=== PATIENT | male | born 1945 | race Caucasian/White ===

== ENCOUNTER 2018-04-18 09:03 | Observation (INO) | payer OTHER, MEDICARE ==
--- NOTE | 2018-04-18 10:14 | EDPHY ---
HPI/HX/ROS/PE/MDM Narrative: CHIEF COMPLAINT: Black stools and emesis HISTORY OF PRESENT ILLNESS: The patient is a 72 y/o male with a history of diverticulitis with perforation requiring partial colectomy and acid reflux complaining of black diarrhea and emesis over the last two days. He ate sushi two days ago and three hours later developed "severe diarrhea all black with some vomiting." The diarrhea continued yesterday so he went to see his PCP in [place]. She obtained a stool sample that he has not received the results of yet. She suspected food poisoning and patient returned home. This morning he developed urgent vomiting and his emesis was black. He called his PCP and was referred directly to the ED. He currently feels weak and has only been able to drink a little bit of Gatorade over the last 1-2 days due to nausea and loss of appetite. He's had intermittent abdominal discomfort during the diarrheal episodes. He has a history of heartburn, but this has been well-controlled with diet changes. He does not use anticoagulants or aspirin. No fever, chills, chest pain, shortness of breath, palpitations, vomiting, urinary complaints, headache, lightheadedness. REVIEW OF SYSTEMS: Aside from elements discussed in the HPI, a comprehensive 10-point review of systems was reviewed and is negative. PAST MEDICAL HISTORY: Diverticulitis with perforation, partial colectomy - Dr. Ch SOCIAL HISTORY: . Lives in [place]. Retired. PCP: Dr. Balderrama. VITAL SIGNS: Reviewed by me GENERAL: Well-developed, well-nourished, resting comfortably in no respiratory distress. HEENT: Atraumatic. Eyes: No icterus, no injection, mildly pale conjunctiva. Mouth: moist mucous membranes. No erythema or lesions. Neck: supple with no adenopathy. LUNGS: Clear to auscultation bilaterally, no wheezes, rhonchi or rales. CARDIAC: Regular rate and rhythm, no rubs, murmurs or gallops. ABDOMEN: Soft, nontender, nondistended, bowel sounds normal. RECTAL: Melena on gloved finger. External hemorrhoid. BACK: No CVA tenderness. EXTREMITIES: No trauma. No edema. Range of motion is normal throughout. NEURO: Alert and oriented, grossly nonfocal. SKIN: Warm and dry, no rash. PSYCHIATRIC: Normal mentation, no agitation. Portions of this note were transcribed by a medical administrative technician. I personally performed a history, physical exam, medical decision making, and confirmed accuracy of information the transcribed note. ED Course: 72 y/o male who presents with a 2-day history of black diarrhea that began 3 hours after eating sushi and is now associated with black emesis this morning. He has mildly pale conjunctiva and melena on exam. He is not tachycardic and his abdomen is benign. Plan for IV, labs, occult stool. Occult stool is positive. Consulted with Dr. Knight, GI. He will scope patient today. Spoke with hospitalist. Dr. Rojas accepts admission for GI bleed. Patient did have a stool sample for GI pathogen panel obtained yesterday. These results are not yet available. MDM: Differential diagnosis of this patient's presumed upper GI bleeding was considered including but not limited to gastritis, Janice-Castillo, peptic ulcer disease, lower GI bleeding. - Data Points Laboratory Results: Laboratory Results 04/18/18 10:00 04/18/18 10:00 04/18/18 04/18/18 04/18/18 11:00 10:00 10:00 WBC RBC Hgb Hct MCV MCH MCHC RDW Plt Count MPV Neut % (Auto) Lymph % (Auto) [place] % (Auto) Eos % (Auto) Baso % (Auto) Nucleat RBC Rel Count Absolute Neuts (auto) Absolute Lymphs (auto) Absolute Monos (auto) Absolute Eos (auto) Absolute Basos (auto) Absolute Nucleated RBC Immature Gran % Immature Gran # Sodium 137 mEq/L mEq/L (135-145) Potassium 3.6 mEq/L mEq/L (3.5-5.2) Chloride 108 mEq/L mEq/L (97-110) Carbon Dioxide 23 mEq/l mEq/l (22-31) Anion Gap 6 mEq/L mEq/L (6-14) BUN 39 mg/dL H mg/dL (7-23) Creatinine 0.8 mg/dL mg/dL (0.7-1.3) Estimated GFR > 60 Glucose 101 mg/dL H mg/dL (70-100) Calcium 8.4 mg/dL L mg/dL (8.5-10.4) Total Bilirubin 1.2 mg/dL mg/dL (0.1-1.4) Conjugated Bilirubin 0.3 mg/dL mg/dL (0.0-0.5) Unconjugated Bilirubin 0.9 mg/dL mg/dL (0.0-1.1) AST 52 IU/L IU/L (17-59) ALT 53 IU/L IU/L (21-72) Alkaline Phosphatase 51 IU/L IU/L (38-126) Total Protein 6.0 g/dL L g/dL (6.3-8.2) Albumin 3.7 g/dL g/dL (3.5-5.0) Lipase 19 IU/L L IU/L (23-300) Stool Occult Bld Scrn POSITIVE H (NEGATIVE) Patient ABO/Rh O POSITIVE Antibody Screen NEGATIVE Crossmatch IS Only See Detail 04/18/18 10:00 WBC 9.24 10^3/uL 10^3/uL (3.80-9.50) RBC 5.73 10^6/uL 10^6/uL (4.40-6.38) Hgb 16.6 g/dL g/dL (13.7-17.5) Hct 49.2 % % (40.0-51.0) MCV 85.9 fL fL (81.5-99.8) MCH 29.0 pg pg (27.9-34.1) MCHC 33.7 g/dL g/dL (32.4-36.7) RDW 14.5 % % (11.5-15.2) Plt Count 151 10^3/uL 10^3/uL (150-400) MPV 11.5 fL fL (8.7-11.7) Neut % (Auto) 69.4 % % (39.3-74.2) Lymph % (Auto) 14.9 % L % (15.0-45.0) [place] % (Auto) 12.0 % % (4.5-13.0) Eos % (Auto) 2.4 % % (0.6-7.6) Baso % (Auto) 0.3 % % (0.3-1.7) Nucleat RBC Rel Count 0.0 % % (0.0-0.2) Absolute Neuts (auto) 6.41 10^3/uL 10^3/uL (1.70-6.50) Absolute Lymphs (auto) 1.38 10^3/uL 10^3/uL (1.00-3.00) Absolute Monos (auto) 1.11 10^3/uL H 10^3/uL (0.30-0.80) Absolute Eos (auto) 0.22 10^3/uL 10^3/uL (0.03-0.40) Absolute Basos (auto) 0.03 10^3/uL 10^3/uL (0.02-0.10) Absolute Nucleated RBC 0.00 10^3/uL 10^3/uL (0-0.01) Immature Gran % 1.0 % % (0.0-1.1) Immature Gran # 0.09 10^3/uL 10^3/uL (0.00-0.10) Sodium Potassium Chloride Carbon Dioxide Anion Gap BUN Creatinine Estimated GFR Glucose Calcium Total Bilirubin Conjugated Bilirubin Unconjugated Bilirubin AST ALT Alkaline Phosphatase Total Protein Albumin Lipase Stool Occult Bld Scrn Patient ABO/Rh Antibody Screen Crossmatch IS Only Medications Given: Discontinued Medications Sodium Chloride (Ns) 1,000 mls @ 0 mls/hr IV EDNOW ONE; Wide Open PRN Reason: Protocol Stop: 04/18/18 10:20 Last Admin: 04/18/18 10:35 Dose: 1,000 mls Ondansetron HCl (Zofran) 4 mg IVP EDNOW ONE Stop: 04/18/18 10:20 Last Admin: 04/18/18 10:36 Dose: Not Given General Time Seen by Provider: 04/18/18 09:58 Initial Vital Signs: Initial Vital Signs Temperature (C) 36.4 C 04/18/18 09:12 Heart Rate 91 04/18/18 09:12 Respiratory Rate 18 04/18/18 09:12 Blood Pressure 117/77 04/18/18 09:12 O2 Sat (%) 93 04/18/18 09:12 O2 Delivery Mode Room Air Allergies/Adverse Reactions: hydromorphone [Hydromorphone] Allergy (Severe, Verified 04/18/18 09:15) Rash fluoxetine HCl [From Prozac] Allergy (Intermediate, Verified 04/18/18 09:15) AGITATION prochlorperazine edisylate [From Compazine] Allergy (Intermediate, Verified 09:15) JITTERY/SHAKEY prochlorperazine maleate [From Compazine] Allergy (Intermediate, Verified 09:15) JITTERY/SHAKEY adhesive tape [Adhesive Tape] Allergy (Mild, Verified 04/18/18 09:15) Rash CATS Allergy (Severe, Uncoded 04/18/18 09:15) TROUBLE BREATHING/WATERY EYES/SNEEZING FRESH FRUIT Allergy (Mild, Uncoded 04/18/18 09:15) SCRATCHY THROAT FRESH VEGS Allergy (Mild, Uncoded 04/18/18 09:15) SCRATCHY THROAT HAYFEVER Allergy (Mild, Uncoded 04/18/18 09:15) SCRATCHY THROAT/WATERY EYES/SNEEZING Home Medications: Medication Instructions Recorded Atorvastatin Calcium [Lipitor 10 5 mg PO HS 05/04/09 mg (*)] Cholecalciferol Vit D3 [Vitamin D3 2,000 units PO DAILY 04/28/11 2000 units tab (OTC)] Multivitamins [Multivitamin (*)] 1 each PO DAILY 04/28/11 Sildenafil Citrate [Viagra 50 MG 50 mg PO AD PRN 04/28/11 (*)] Albuterol [Proventil Inhaler HFA 1 - 2 puffs IH Q4H PRN 04/18/18 (*)] Herbals/Supplements -Info Only 1 ea PO DAILY 04/18/18 Montelukast Sodium [Singulair 10 10 mg PO DAILY@1800 PRN 04/18/18 mg (*)] [place]-3 Fatty Acids [Fish Oil 1000 1,000 mg PO DAILY 04/18/18 mg (*)] Vancomycin [Vancomycin (*)] 125 mg PO Q6 #38 cap 04/19/18 Departure - Departure Disposition: [facility] Inpatient Acute Clinical Impression: Upper GI bleed Diarrhea Qualifiers: Diarrhea type: unspecified type Qualified Code(s): R19.7 - Diarrhea, unspecified Condition: Fair Report Scribed for: Hellen Brown Report Scribed by: Linda Boo Date of Report: 04/18/18 Time of Report: 10:15
[2018-04-18] MEDS ORDERED: NS 1,000 ML IV ONE ×2 (10:19→12:03)
[2018-04-18] MEDS ORDERED: ONDANSETRON 4 MG/2 ML VIAL IVP ONE (10:19)
[2018-04-18 10:37] LABS: PLATELET COUNT 151 10^3/uL (150-400)
[2018-04-18] MEDS ORDERED: PANTOPRAZOLE SODIUM 40 MG VIAL IVP ONE (11:54)
[2018-04-18] MEDS ORDERED: PANTOPRAZOLE SODIUM 40 MG VIAL ONE (11:58)
[2018-04-18] MEDS ORDERED: ONDANSETRON DISINTEGRATING 4 MG TAB PO PRN (12:49)
[2018-04-18] MEDS ORDERED: ACETAMINOPHEN 325 MG TAB PO PRN (12:49)
[2018-04-18] MEDS ORDERED: ONDANSETRON 4 MG/2 ML VIAL IVP PRN (12:49)
[2018-04-18] MEDS ORDERED: ALBUTEROL 60 PUFFS/8 GM MDI IH PRN (12:56)
[2018-04-18] MEDS ORDERED: NS 1,000 ML IV SCH (13:00)
--- NOTE | 2018-04-18 13:04 | PDGENHP ---
<Louann Alonso - Last Filed: 04/18/18 13:20> History and Physical - Chief Complaint Melena, black emesis - History of Present Illness 72 y/o male presents c/o of black diarrhea and vomiting. Onset was 2 days ago after eating at a sushi restaurant where he had salmon sushi, his did not at the time. His last normal bowel movement was at the restaurant. Three hours after eating sushi, his stomach hurt and had "explosive" black diarrhea. The diarrhea continued yesterday, he followed up with his PCP Dr. Balderrama, in [place] and a stool sample was taken but results unknown. She suspected food poisoning and he was sent home. Today, he developed one time vomiting but reports it was black in color. Under the direction of his PCP, he came to the emergency room. He hasn't had much of an appetite, the last thing he ate was the sushi. He has been sipping on Gatorade, last sips were early this morning. He feels fatigued but not lightheaded or weak. Denies chest pains, palpitations, shortness of breath, fever or chills. Per pt, last colonoscopy was ~3 years ago, no polyps noted at the time and was "normal." He was told to have another colonoscopy in 10 years. He is being admitted for further diagnostic work-up and monitoring. Past Medical History 1. Diverticulitis with perforation (1997) 2. GERD 3. Hyperlipidemia 4. IBS 5. Osteopenia Past Surgical History 1. Partial colectomy s/p diverticulitis with perforation (1997, surgery performed by Dr. Harjinder Ch) 2. TURP 3. Cholecystectomy 4. Prostatectomy Social 1. . 2. 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 3. Denies tobacco or illicit drug use. Drinks occasionally 2-3 drinks/week. History Information - Allergies/Home Medication List Allergies/Adverse Reactions: hydromorphone [Hydromorphone] Allergy (Severe, Verified 04/18/18 09:15) Rash fluoxetine HCl [From Prozac] Allergy (Intermediate, Verified 04/18/18 09:15) AGITATION prochlorperazine edisylate [From Compazine] Allergy (Intermediate, Verified 09:15) JITTERY/SHAKEY prochlorperazine maleate [From Compazine] Allergy (Intermediate, Verified 09:15) JITTERY/SHAKEY adhesive tape [Adhesive Tape] Allergy (Mild, Verified 04/18/18 09:15) Rash CATS Allergy (Severe, Uncoded 04/18/18 09:15) TROUBLE BREATHING/WATERY EYES/SNEEZING FRESH FRUIT Allergy (Mild, Uncoded 04/18/18 09:15) SCRATCHY THROAT FRESH VEGS Allergy (Mild, Uncoded 04/18/18 09:15) SCRATCHY THROAT HAYFEVER Allergy (Mild, Uncoded 04/18/18 09:15) SCRATCHY THROAT/WATERY EYES/SNEEZING Home Medications: Atorvastatin Calcium [Lipitor 10 mg (*)] 5 mg PO HS 05/04/09 [Last Taken ] Cholecalciferol Vit D3 [Vitamin D3 2000 units tab (OTC)] 2,000 units PO DAILY [Last Taken 04/28/11 07:00] Multivitamins [Multivitamin (*)] 1 each PO DAILY 04/28/11 [Last Taken 04/28/11 07:00] Sildenafil Citrate [Viagra 50 MG (*)] 50 mg PO AD PRN 04/28/11 [Last Taken 04/24 20:00] Albuterol [Proventil Inhaler HFA (*)] 1 - 2 puffs IH Q4H PRN 04/18/18 [Last Taken Unknown] Herbals/Supplements -Info Only 1 ea PO DAILY 04/18/18 [Last Taken Unknown] Montelukast Sodium [Singulair 10 mg (*)] 10 mg PO DAILY@1800 PRN 04/18/18 [Last Taken Unknown] [place]-3 Fatty Acids [Fish Oil 1000 mg (*)] 1,000 mg PO DAILY 04/18/18 [Last Taken Unknown] I have personally reviewed and updated: family history, medical history, social history, surgical history Past Medical History: See HPI list - Surgical History Additional surgical history: See HPI list - Family History Positive for: cancer (Father had colon cancer) - Social History Smoking Status: Never smoked Alcohol Use: Occasionally Drug Use: None Review of Systems Review of Systems: ROS: 10pt was reviewed & negative except for what was stated in HPI & below Constitutional: Reports: malaise EENMT: Reports: no symptoms Cardiac: Reports: no symptoms Respiratory: Reports: no symptoms Gastrointestinal: Reports: vomitting, black stools, abdominal pain, abdominal distention, diarrhea Genitourinary: Reports: no symptoms Muscolosketal: Reports: no symptoms Skin: Reports: no symptoms Neurological: Reports: no symptoms Hematologic/Lymphatic: Reports: no symptoms Immunologic/Allergy: Reports: other (See allergy list) Physical Exam Physical Exam: Lab data and imaging reviewed EKG: SR, LAFB WBC: 9.24 RBC/H/H: 5.73/16.6/49.2 Na: 137 K: 3.6 BUN/Creatinine: 39/0.8 Temp Pulse Resp BP Pulse Ox 36.4 C 71 16 132/77 H 93 04/18/18 09:12 04/18/18 12:03 04/18/18 12:03 04/18/18 12:03 04/18/18 12:03 Constitutional: no apparent distress, appears nourished, not in pain Eyes: PERRL, anicteric sclera, EOMI Ears, Nose, Mouth, Throat: moist mucous membranes, hearing normal, ears appear normal, no oral mucosal ulcers Cardiovascular: regular rate and rhythym, no murmur, rub, or gallop, No edema Peripheral Pulses: 2+: dorsalis-pedis (R) (Radial 2+), dorsalis-pedis (L) ( Radial 2+) Respiratory: no respiratory distress, no rales or rhonchi, clear to auscultation Gastrointestinal: soft, non-tender abdomen, no palpable masses, other ( Hyperactive BS) Genitourinary: no bladder fullness, no bladder tenderness Skin: warm, normal color, no rashes or abrasions, no fluctuance, no induration, No mottled Musculoskeletal: full muscle strength, no muscle tenderness, normal joint ROM, no joint effusions Neurologic: AAOx3, sensation intact bilaterally, CN II-XII Intact Psychiatric: interacting appropriately, not anxious, not encephalopathic, thought process linear Lymph, Heme, Immunologic: no cervical LAD, no supraclavicular LAD Lab Data & Imaging Review 04/18/18 10:00 04/18/18 10:00 WBC 9.24 10^3/uL (3.80-9.50) 04/18/18 10:00 RBC 5.73 10^6/uL (4.40-6.38) 04/18/18 10:00 Hgb 16.6 g/dL (13.7-17.5) 04/18/18 10:00 Hct 49.2 % (40.0-51.0) 04/18/18 10:00 MCV 85.9 fL (81.5-99.8) 04/18/18 10:00 MCH 29.0 pg (27.9-34.1) 04/18/18 10:00 MCHC 33.7 g/dL (32.4-36.7) 04/18/18 10:00 RDW 14.5 % (11.5-15.2) 04/18/18 10:00 Plt Count 151 10^3/uL (150-400) 04/18/18 10:00 MPV 11.5 fL (8.7-11.7) 04/18/18 10:00 Neut % (Auto) 69.4 % (39.3-74.2) 04/18/18 10:00 Lymph % (Auto) 14.9 % (15.0-45.0) L 04/18/18 10:00 [place] % (Auto) 12.0 % (4.5-13.0) 04/18/18 10:00 Eos % (Auto) 2.4 % (0.6-7.6) 04/18/18 10:00 Baso % (Auto) 0.3 % (0.3-1.7) 04/18/18 10:00 Nucleat RBC Rel Count 0.0 % (0.0-0.2) 04/18/18 10:00 Absolute Neuts (auto) 6.41 10^3/uL (1.70-6.50) 04/18/18 10:00 Absolute Lymphs (auto) 1.38 10^3/uL (1.00-3.00) 04/18/18 10:00 Absolute Monos (auto) 1.11 10^3/uL (0.30-0.80) H 04/18/18 10:00 Absolute Eos (auto) 0.22 10^3/uL (0.03-0.40) 04/18/18 10:00 Absolute Basos (auto) 0.03 10^3/uL (0.02-0.10) 04/18/18 10:00 Absolute Nucleated RBC 0.00 10^3/uL (0-0.01) 04/18/18 10:00 Immature Gran % 1.0 % (0.0-1.1) 04/18/18 10:00 Immature Gran # 0.09 10^3/uL (0.00-0.10) 04/18/18 10:00 Sodium 137 mEq/L (135-145) 04/18/18 10:00 Potassium 3.6 mEq/L (3.5-5.2) 04/18/18 10:00 Chloride 108 mEq/L (97-110) 04/18/18 10:00 Carbon Dioxide 23 mEq/l (22-31) 04/18/18 10:00 Anion Gap 6 mEq/L (6-14) 04/18/18 10:00 BUN 39 mg/dL (7-23) H 04/18/18 10:00 Creatinine 0.8 mg/dL (0.7-1.3) 04/18/18 10:00 Estimated GFR > 60 04/18/18 10:00 Glucose 101 mg/dL (70-100) H 04/18/18 10:00 Calcium 8.4 mg/dL (8.5-10.4) L 04/18/18 10:00 Total Bilirubin 1.2 mg/dL (0.1-1.4) 04/18/18 10:00 Conjugated Bilirubin 0.3 mg/dL (0.0-0.5) 04/18/18 10:00 Unconjugated Bilirubin 0.9 mg/dL (0.0-1.1) 04/18/18 10:00 AST 52 IU/L (17-59) 04/18/18 10:00 ALT 53 IU/L (21-72) 04/18/18 10:00 Alkaline Phosphatase 51 IU/L (38-126) 04/18/18 10:00 Total Protein 6.0 g/dL (6.3-8.2) L 04/18/18 10:00 Albumin 3.7 g/dL (3.5-5.0) 04/18/18 10:00 Lipase 19 IU/L (23-300) L 04/18/18 10:00 Stool Occult Bld Scrn POSITIVE (NEGATIVE) H 04/18/18 11:00 Patient ABO/Rh O POSITIVE 04/18/18 10:00 Antibody Screen NEGATIVE 04/18/18 10:00 Crossmatch IS Only See Detail 04/18/18 10:00 Assessment & Plan Plan: This is a 72 y/o presenting with 2 days worth of melena and today with one episode of black colored vomit. Endorses loss of appetite, abdominal distention , and fatigue. 1. Suspected upper GI bleed: H/H unremarkable. Hemodynamically stable. Stool occult +. Melena noted on ED's gloved finger and external hemorrhoid noted. -Cycle H/H Q6H x 3 -Consulted GI. Dr. Knight to perform upper scope later today therefore pt will be NPO -VS BID -Insert second PIV access -CBC/BMP tomorrow -Received Protonix IVP in ED; will continue to receive Protonix BID IVP -Received 2L NS in ED; will continue to receive IVF -Anti-emetics PRN 2. GERD: will receive IV Protonix BID 3. Hyperlipidemia: on atorvastatin. May resume tomorrow night. 4. Seasonal allergies: on albuterol and Singulair PRN. May continue. Diet: NPO VTE ppx: SCDs Code: Full Dispo: Admit to inpatient <Donna Portillo - Last Filed: 04/18/18 15:03> History and Physical - History of Present Illness Review of Systems Review of Systems: Physical Exam Physical Exam: Temp Pulse Resp BP Pulse Ox 36.4 C 66 14 131/82 H 97 04/18/18 09:12 04/18/18 14:13 04/18/18 14:13 04/18/18 14:13 04/18/18 14:13 Lab Data & Imaging Review 04/18/18 13:40 04/18/18 10:00 WBC 9.24 10^3/uL (3.80-9.50) 04/18/18 10:00 RBC 5.73 10^6/uL (4.40-6.38) 04/18/18 10:00 Hgb 12.7 g/dL (13.7-17.5) L 04/18/18 13:40 Hct 38.5 % (40.0-51.0) L 04/18/18 13:40 MCV 85.9 fL (81.5-99.8) 04/18/18 10:00 MCH 29.0 pg (27.9-34.1) 04/18/18 10:00 MCHC 33.7 g/dL (32.4-36.7) 04/18/18 10:00 RDW 14.5 % (11.5-15.2) 04/18/18 10:00 Plt Count 151 10^3/uL (150-400) 04/18/18 10:00 MPV 11.5 fL (8.7-11.7) 04/18/18 10:00 Neut % (Auto) 69.4 % (39.3-74.2) 04/18/18 10:00 Lymph % (Auto) 14.9 % (15.0-45.0) L 04/18/18 10:00 [place] % (Auto) 12.0 % (4.5-13.0) 04/18/18 10:00 Eos % (Auto) 2.4 % (0.6-7.6) 04/18/18 10:00 Baso % (Auto) 0.3 % (0.3-1.7) 04/18/18 10:00 Nucleat RBC Rel Count 0.0 % (0.0-0.2) 04/18/18 10:00 Absolute Neuts (auto) 6.41 10^3/uL (1.70-6.50) 04/18/18 10:00 Absolute Lymphs (auto) 1.38 10^3/uL (1.00-3.00) 04/18/18 10:00 Absolute Monos (auto) 1.11 10^3/uL (0.30-0.80) H 04/18/18 10:00 Absolute Eos (auto) 0.22 10^3/uL (0.03-0.40) 04/18/18 10:00 Absolute Basos (auto) 0.03 10^3/uL (0.02-0.10) 04/18/18 10:00 Absolute Nucleated RBC 0.00 10^3/uL (0-0.01) 04/18/18 10:00 Immature Gran % 1.0 % (0.0-1.1) 04/18/18 10:00 Immature Gran # 0.09 10^3/uL (0.00-0.10) 04/18/18 10:00 Sodium 137 mEq/L (135-145) 04/18/18 10:00 Potassium 3.6 mEq/L (3.5-5.2) 04/18/18 10:00 Chloride 108 mEq/L (97-110) 04/18/18 10:00 Carbon Dioxide 23 mEq/l (22-31) 04/18/18 10:00 Anion Gap 6 mEq/L (6-14) 04/18/18 10:00 BUN 39 mg/dL (7-23) H 04/18/18 10:00 Creatinine 0.8 mg/dL (0.7-1.3) 04/18/18 10:00 Estimated GFR > 60 04/18/18 10:00 Glucose 101 mg/dL (70-100) H 04/18/18 10:00 Calcium 8.4 mg/dL (8.5-10.4) L 04/18/18 10:00 Total Bilirubin 1.2 mg/dL (0.1-1.4) 04/18/18 10:00 Conjugated Bilirubin 0.3 mg/dL (0.0-0.5) 04/18/18 10:00 Unconjugated Bilirubin 0.9 mg/dL (0.0-1.1) 04/18/18 10:00 AST 52 IU/L (17-59) 04/18/18 10:00 ALT 53 IU/L (21-72) 04/18/18 10:00 Alkaline Phosphatase 51 IU/L (38-126) 04/18/18 10:00 Total Protein 6.0 g/dL (6.3-8.2) L 04/18/18 10:00 Albumin 3.7 g/dL (3.5-5.0) 04/18/18 10:00 Lipase 19 IU/L (23-300) L 04/18/18 10:00 Stool Occult Bld Scrn POSITIVE (NEGATIVE) H 04/18/18 11:00 Patient ABO/Rh O POSITIVE 04/18/18 10:00 Antibody Screen NEGATIVE 04/18/18 10:00 Crossmatch IS Only See Detail 04/18/18 10:00 Assessment & Plan Assessment: Upper GI bleed (Acute) Diarrhea (Acute)
[2018-04-18] MEDS ORDERED: PROPOFOL 200 MG/20 ML VIAL ONE (15:21)
[2018-04-18] MEDS ORDERED: LR 1,000 ML IV ONE (15:35)
[2018-04-18] MEDS ORDERED: fentaNYL 100 MCG/2 ML INJ ONE (15:39)
--- NOTE | 2018-04-18 15:44 | PDANEPAE ---
ANE History of Present Illness 2 year old fit male with 2 days of vomiting and diarrhea heme positive. Began shortly after eating sushi. ANE Past Medical History - Cardiovascular History Hx Hypertension: No Hx Arrhythmias: No Hx Chest Pain: No Hx Coronary Artery / Peripheral Vascular Disease: No Hx Palpitations: No - Pulmonary History Hx COPD: No Hx Asthma/Reactive Airway Disease: No Hx Recent Upper Respiratory Infection: No Hx Oxygen in Use at Home: No Hx Sleep Apnea: No - Endocrine History Hx Diabetes: No ANE Review of Systems Review of systems is: negative Review of Systems: ANE Patient History - Allergies Allergies/Adverse Reactions: hydromorphone [Hydromorphone] Allergy (Severe, Verified 04/18/18 09:15) Rash fluoxetine HCl [From Prozac] Allergy (Intermediate, Verified 04/18/18 09:15) AGITATION prochlorperazine edisylate [From Compazine] Allergy (Intermediate, Verified 09:15) JITTERY/SHAKEY prochlorperazine maleate [From Compazine] Allergy (Intermediate, Verified 09:15) JITTERY/SHAKEY adhesive tape [Adhesive Tape] Allergy (Mild, Verified 04/18/18 09:15) Rash CATS Allergy (Severe, Uncoded 04/18/18 09:15) TROUBLE BREATHING/WATERY EYES/SNEEZING FRESH FRUIT Allergy (Mild, Uncoded 04/18/18 09:15) SCRATCHY THROAT FRESH VEGS Allergy (Mild, Uncoded 04/18/18 09:15) SCRATCHY THROAT HAYFEVER Allergy (Mild, Uncoded 04/18/18 09:15) SCRATCHY THROAT/WATERY EYES/SNEEZING - Home Medications Home Medications: Atorvastatin Calcium [Lipitor 10 mg (*)] 5 mg PO HS 05/04/09 [Last Taken ] Cholecalciferol Vit D3 [Vitamin D3 2000 units tab (OTC)] 2,000 units PO DAILY [Last Taken 04/28/11 07:00] Multivitamins [Multivitamin (*)] 1 each PO DAILY 04/28/11 [Last Taken 04/28/11 07:00] Sildenafil Citrate [Viagra 50 MG (*)] 50 mg PO AD PRN 04/28/11 [Last Taken 04/24 20:00] Albuterol [Proventil Inhaler HFA (*)] 1 - 2 puffs IH Q4H PRN 04/18/18 [Last Taken Unknown] Herbals/Supplements -Info Only 1 ea PO DAILY 04/18/18 [Last Taken Unknown] Montelukast Sodium [Singulair 10 mg (*)] 10 mg PO DAILY@1800 PRN 04/18/18 [Last Taken Unknown] [place]-3 Fatty Acids [Fish Oil 1000 mg (*)] 1,000 mg PO DAILY 04/18/18 [Last Taken Unknown] - NPO status NPO Since - Liquids (Date): 04/18/18 NPO Since - Liquids (Time): 03:00 NPO Since - Solids (Date): 04/16/18 - Smoking Hx Smoking Status: Never smoked - Alcohol Use Alcohol Use: Occasionally ANE Labs/Vital Signs - Labs Result Diagrams: 04/18/18 13:40 04/18/18 10:00 - Vital Signs Blood Pressure: 131/82 Heart Rate: 66 Respiratory Rate: 14 O2 Sat (%): 97 Height: 172.72 cm Weight: 73.936 kg ANE Physical Exam - Airway Neck exam: FROM Mallampati Score: Class 2 Mouth exam: normal dental/mouth exam - Pulmonary Pulmonary: no respiratory distress - Cardiovascular Cardiovascular: regular rate and rhythym - ASA Status ASA Status: II ANE Anesthesia Plan Anesthesia Plan: MAC
[2018-04-18] MEDS ORDERED: PROPOFOL/EMULSION 500 MG/50 ML BOTTLE IV ONE (15:50)
[2018-04-18] MEDS ORDERED: NALOXONE HCL 0.4 MG/ML INJ IVP PRN (16:00)
[2018-04-18] MEDS ORDERED: fentaNYL 100 MCG/2 ML INJ IVP PRN (16:00)
--- NOTE | 2018-04-18 16:08 | GIREPORT ---
[facility] Surgical Services - Endoscopy Department Patient Name: Ever Lucas Procedure Date: 04/18/2018 3:26 PM Patient Type: Emergency Department Attending MD/ ER Physician: Daniel Knight MD Procedure: Upper GI endoscopy Indications: Epigastric abdominal pain, Hematemesis, Melena, Acute post hemorrhagic anemia, Nausea with vomiting Providers: Daniel Knight MD Medicines: General Anesthesia Complications: No immediate complications. Description of Procedure: After obtaining informed consent, the endoscope was passed under direct vision. Throughout the procedure, the patient's blood pressure, pulse, and oxygen saturations were monitored continuously. The Endoscope was intro duced through the mouth, and advanced to the third part of duodenum. The uppe r GI endoscopy was accomplished without difficulty. The patient tolerated th e procedure well. Findings: A 6 mm non-bleeding Janice-Castillo tear with no stigmata of recent bleed ing was found. A small hiatal hernia was present. The gastric fundus, gastric body and gastric antrum were normal. The examined duodenum was normal. Estimated Blood Loss: Estimated blood loss: none. Post Op Diagnosis: - Janice-Castillo tear. - Small hiatal hernia. - Normal gastric fundus, gastric body and antrum. - Normal examined duodenum. - No specimens collected. Recommendation: - [facility]. - Clear liquid diet today. - Use Protonix (pantoprazole) 40 mg PO BID today. - [facility] - The findings and recommendations were discussed with the patient and their spouse. Attending Participation: I personally performed the entire procedure. Daniel Knight MD Daniel Knight MD 04/18/2018 4:08:06 PM This report has been signed electronicallyDaniel Knight MD Number of Addenda: 0 Note Initiated On: 04/18/2018 3:26 PM [email or web address]
--- NOTE | 2018-04-18 16:39 | POSTANESTH ---
Post Anesthetic Evaluation Cardiovascular Status: Normal, Stable Respiratory Status: Normal, Stable Level of Consciousness/Mental Status: Can Participate in Eval Pain Control: Adequate, Prn Tx Ordered Nausea/Vomiting Control: Adequate, Prn Tx Ordered Complications Possibly Related to Anesthesia: None Noted
[2018-04-18] MEDS ORDERED: MONTELUKAST SODIUM 10 MG TAB PO PRN (18:00)
--- NOTE | 2018-04-18 19:02 | GCON ---
[f rep st] CONSULTATION GASTROENTEROLOGY CONSULTATION DATE OF CONSULTATION: 04/18/2018 REFERRING PHYSICIAN: Donna Portillo MD REASON FOR CONSULTATION: Epigastric abdominal pain, nausea, vomiting, and hematemesis. HISTORY OF PRESENT ILLNESS: The patient is a 72-year-old gentleman who states that he developed epigastric abdominal pain, nausea and vomiting starting several hours after eating sushi at a sushi restaurant yesterday afternoon. He initially had a normal bowel movement shortly after being at the restaurant, however, thereafter had several explosive black diarrheal stools. He was seen by his primary care doctor that afternoon and was sent home. He came to the emergency room at [facility] today after nausea and vomiting of black tarry material and complaints of fatigue. He has had no previous episodes of this nature. He does a have a history of a left colon resection for diverticulitis. His last screening colonoscopy was 3 years ago and reported as normal. He has no history of peptic ulcer disease. He does complain of intermittent dysphagia to solids for years but has never been evaluated with EGD. HOME MEDICATIONS: Atorvastatin 5 mg p.o. at bedtime, vitamin D3 2000 units p.o. daily, multivitamin 1 tab p.o. daily, Viagra 50 mg p.o. at bedtime p.r.n., albuterol inhaler 2 puffs q.4 hours p.r.n. shortness of breath, Singulair 10 mg p.o. p.r.n. shortness of breath, fish oil 1000 mg p.o. daily. ALLERGIES: He is allergic to hydro morphine, fluoxetine, prochlorperazine, adhesive tape. He is also allergic to fresh fruit, cat dander, fresh fish, vegetables, and hay fever. PAST MEDICAL HISTORY: Significant for hyperlipidemia and asthma. PAST SURGICAL HISTORY: Significant for left colon resection in 1997 secondary to diverticulitis with perforation, TURP, cholecystectomy, prostatectomy. FAMILY HISTORY: Negative for GI malignancy, IBD or PUD. SOCIAL HISTORY: He is . He is a semi retired assistant cross country coach. He only drinks wine 1 glass through 2 or 3 times per week. Denies any tobacco use. REVIEW OF SYSTEMS: Other than noted in the HPI is negative for comprehensive review of systems. PHYSICAL EXAMINATION: VITAL SIGNS: Temperature 36.4 Celsius, pulse 66 regular , blood pressure 131/82, respiratory rate 14, O2 saturation 97% on room air. GENERAL: A well-developed, well-nourished male in no apparent distress. INTEGUMENT: Clear. HEENT: Head atraumatic, normocephalic. Pupils equal, round, react to light. EOMs are intact. Sclerae nonicteric. Mucous membranes moist. Dentition good. NECK: Supple. Trachea midline. LYMPHATICS: No cervical or axillary adenopathy palpated pulmonary. LUNGS: Clear to percussion and auscultation. CARDIOVASCULAR: Regular rhythm and rate. Normal S1, S2 without murmur. Peripheral pulses strong bilaterally. No pedal edema. GASTROINTESTINAL: Abdomen supple. Positive bowel sounds. There is mild tenderness to palpation in the epigastrium without palpable mass or rebound. No fluid wave noted. EXTREMITIES: Without deformity. NEURO: Patient was alert and oriented x3. There are no focal neurologic deficits. LABS: CBC on 04/18/2018 at 8 a.m. showed hemoglobin 16.6, hematocrit 49.2, white count 9.24, platelets 151,000, H and H at noon showed hemoglobin of 12.7, hematocrit 38.5. Electrolytes were normal. BUN elevated at 39, creatinine 0.8. LFTs normal. Albumin 3.7, lipase 19. Stool was Hemoccult positive. IMPRESSION: 1. Epigastric abdominal pain, nausea, vomiting, hematemesis with 4 g drop in hemoglobin consistent with acute upper gastrointestinal bleed, rule out Janice- Castillo tear, rule out gastritis or peptic ulceration. 2. Reactive airway disease. 3. Hyperlipidemia. 4. Intermittent dysphagia; r/o esophageal stricture. RECOMMENDATIONS: 1. IV PPI therapy. 2. NPO. 3. Urgent esophagogastroduodenoscopy with propofol anesthesia due to the patient's reactive airway disease, which puts him at increased risk for complication with procedures. /[id number]/MODL MTDD
[2018-04-18] MEDS: PANTOPRAZOLE SODIUM 40 MG VIAL IVP SCH (21:52)
[2018-04-18] MEDS: VANCOMYCIN 125 MG/2.5 ML UDL PO SCH (21:52)
[2018-04-19 04:50] LABS: PLATELET COUNT 129 10^3/uL (150-400)
[2018-04-19] MEDS: VANCOMYCIN 125 MG/2.5 ML UDL PO SCH (04:55)
--- NOTE | 2018-04-19 08:57 | HOSPPROG ---
Hospitalist Progress Note Assessment/Plan: #AGIB: MWT on EGD. IV PPI #Norovirus and C diff infection #GERD #HLD #IBS Subjective: stools more formed Objective: Vital Signs Temp Pulse Resp BP Pulse Ox 36.9 C 63 17 124/74 H 93 04/19/18 05:00 04/19/18 05:00 04/19/18 05:00 04/19/18 05:00 04/19/18 05:00 Microbiology 04/18/18 15:12 Gastrointestinal Tract Panel (PCR) - Final Stool Clostridium Difficile Detected Norovirus Gi/Gii Laboratory Results 04/19/18 04:22 04/19/18 04:22 04/18/18 04/19/18 04/20/18 05:59 05:59 05:59 Intake Total 2300 Output Total 625 Balance 1675 - Time Spent With Patient Time Spent with Patient: greater than 35 minutes Time Spent with Patient: Greater than 35 minutes spent on this patients care, greater than 50% of time spent counseling, educating, and coordinating care regarding the above mentioned plan. - Physical Exam Constitutional: no apparent distress Eyes: PERRL Ears, Nose, Mouth, Throat: moist mucous membranes Cardiovascular: regular rate and rhythym Respiratory: no respiratory distress Gastrointestinal: normoactive bowel sounds, soft, non-tender abdomen, No tenderness Skin: warm Musculoskeletal: full muscle strength Neurologic: AAOx3, CN II-XII Intact Psychiatric: interacting appropriately ICD10 Worksheet Patient Problems: Problems Problem Status Onset Upper GI bleed Acute Diarrhea Acute
[2018-04-19] MEDS ORDERED: PANTOPRAZOLE SODIUM 40 MG VIAL IVP SCH (09:00)
[2018-04-19] MEDS: PANTOPRAZOLE SODIUM 40 MG VIAL IVP SCH (09:16)
--- NOTE | 2018-04-19 10:59 | SOAPPROG ---
SOAP Progress Note Assessment/Plan: Assessment: 1. Janice-Castillo tear; stable. 2. N/V secondary to Noro virus infection; clinically feeling better without nausea and tolerating full liquids. 3. Chronic recurrent dysphagia secondary to stricture. 4. Sool C. diff +, likelycarrier state. Plan: 1. NORAH. 2. D/C home today. 3. F/U EGD with esophageal stricture dilation in 2-4 weeks. 4. C diff treatment per hospitalist. Daniel Knight MD 04/19/18 11:00 Subjective: CC: hematemesis secondary to MW tear. Interval HPI; Feeling fine without dysphagia, n/v. Stool + for C. Diff and noro virus. Objective: Vital Signs Temp Pulse Resp BP Pulse Ox 37.1 C 70 16 135/73 H 93 04/19/18 09:02 04/19/18 09:02 04/19/18 09:02 04/19/18 09:02 04/19/18 09:02 Microbiology 04/18/18 15:12 Gastrointestinal Tract Panel (PCR) - Final Stool Clostridium Difficile Detected Norovirus Gi/Gii Laboratory Results 04/19/18 04:22 04/19/18 04:22 04/18/18 04/19/18 04/20/18 05:59 05:59 05:59 Intake Total 2300 Output Total 625 Balance 1675 Stool + for C.Diff and Noro virus. Physical Exam - Physical Exam General Appearance: alert, no apparent distress Respiratory: lungs clear Cardiac/Chest: regular rate, rhythm Abdomen: normal bowel sounds, non-tender, soft Skin: normal color, warm/dry Neuro/Psych: alert, normal mood/affect, oriented x 3 ICD10 Worksheet Patient Problems: Problems Problem Status Onset Diarrhea Acute Upper GI bleed Acute
[2018-04-19 11:55] VITALS: BP 137/70
--- NOTE | 2018-04-19 13:23 | GDS ---
[f rep st] DISCHARGE SUMMARY DISCHARGE DIAGNOSIS: 1. Acute gastrointestinal bleed secondary to Janice-Castillo tear. 2. Norovirus. 3. Clostridium difficile infection. 4. Gastroesophageal reflux disease. 5. Hyperlipidemia. 6. Irritable bowel syndrome. HISTORY OF PRESENT ILLNESS: A 72-year-old male with GERD, presented with black diarrhea and vomiting. Had a sudden onset of feeling ill 2 days ago, quickly after eating at a sushi restaurant where he had salmon sushi. Three hours after eating, his stomach hurt and he had explosive black diarrhea. The diarrhea continued yesterday. He did stick his fingers down his throat to induce vomiting, thinking it would make him feel better. Of note, his grandson was recently positive for norovirus. Thinks he was on antibiotics 3 months ago , but is unclear. Denies fevers, chills or sweats. HOSPITAL COURSE BY PROBLEM: Problem: 1. Acute GI bleed: EGD showed a Janice-Castillo tear secondary to retching. His H and H have remained stable. Tolerating full liquid diet without issue. 2. Norovirus GI infection. Supportive care with plenty of fluids. 3. C difficile infection: suspect this is colonization since afebrile, no leukocytosis. Unclear if he was on antibiotics recently. Initial plan was to observe off antibiotics over weekend, if diarrhea persists, then follow up with his PCP on Sunday to initiate. He felt more comfortable being treated with abx. 4. Hyperlipidemia, statin. DISPOSITION: Patient is stable for discharge home. NEW MEDICATIONS: Vancomycin. TIME SPENT ON DISCHARGE: 35 minutes at bedside counseling patient on medications and followup plan. /[id number]/MODL MTDD
--- NOTE | 2018-04-19 13:39 | CPEKG ---
Test Reason : OPEN Blood Pressure : / mmHG Vent. Rate : 068 BPM Atrial Rate : 069 BPM P-R Int : 197 ms QRS Dur : 082 ms QT Int : 425 ms P-R-T Axes : 067 -54 050 degrees QTc Int : 453 ms Sinus rhythm Left anterior fascicular block Confirmed by Hellen Brown ([id number]) on 04/19/2018 1:38:32 PM Referred By: Hellen Brown Confirmed By:Hellen Brown
--- NOTE | 2018-04-19 14:10 | ASDISCHSUM ---
Discharge Information Plan Status:Home with No Needs Medically Cleared to Leave:04/18/2018 Discharge Date:04/19/2018 01:38 PM CM D/C Disposition:Home, Routine, Self-Care ADT D/C Disposition:Home, Routine, Self-Care Projected Discharge Date:04/19/2018 01:38 PM Transportation at D/C: Discharge Delay Reason: Follow-Up Date:04/19/2018 01:38 PM Discharge Slot: Final Diagnosis: Placement Information Patient Contact Information Contact Name:DELIA Relationship: Address:[address] [place] City:[place] Alternate Phone: State/Zip Code:[place] [address] Email: Financial Information Financial Class:Medicare Primary Plan Desc:MEDICARE OUTPATIENT Primary Plan Number:[id number] Secondary Plan Desc:JASON/MDR SUPPLEMENT Secondary Plan Number:[id number] Assessment Information LACE LACE Length of stay for Answers: 1 day current admission Acuity / Level of Answers: No Care: Did the patient have an inpatient admission? Comorbidities - select Answers: Other Notes: Diverticulitis; HLD all that apply # of Emergency department Answers: 1-2 visits in the last 6 months Score: 3 Date Signed: 04/19/2018 02:09 PM Electronically Signed By:Monica Negrete RN Intervention Information Intervention Type:MACARIO-Signed Date of Service:04/19/2018 10:30 AM Patient Type:Observation Staff Member:Holli Adams Hours: Discipline: Severity: Comment:
[2018-04-19] MEDS ORDERED: ATORVASTATIN CALCIUM 10 MG TAB PO SCH (21:00)
== END 2018-04-19 13:38 | disposition home or self-care (01) ==
LOC: INTOOBSV 11:20 → F2W 16:45
PROVIDERS: ADMIT Family Medicine; ATTEND Internal Medicine
PROC: 0DJ08ZZ Inspection of Upper Intestinal Tract, Via Natural or Artificial Opening Endoscopic (ICD-10-PCS; principal; 2018-04-18 14:45)
DX: K22.6 Gastro-esophageal laceration-hemorrhage syndrome (principal); K92.0 Hematemesis; K92.1 Melena; D62 Acute posthemorrhagic anemia; A08.11 Acute gastroenteropathy due to Norwalk agent; A04.72 Enterocolitis due to Clostridium difficile, not specified as recurrent; K58.9 Irritable bowel syndrome, unspecified; R13.10 Dysphagia, unspecified; K21.9 Gastro-esophageal reflux disease without esophagitis; J45.909 Unspecified asthma, uncomplicated; E78.5 Hyperlipidemia, unspecified
CPT/HCPCS: 43235; 93005; G0378; J2704; J3010; 96374